=== PATIENT | female | born 1980 | race Asian ===

== ENCOUNTER 2019-02-27 09:27 | Emergency (ER) | payer OTHER ==
[~2019-02-27] VITALS: Ht 157.5 cm; Wt 52.6 kg
[2019-02-27 10:49] VITALS: BP 132/84
== END 2019-02-27 13:08 | disposition home or self-care (01) ==
LOC: ED 09:27
DX: M54.5 Low back pain (principal)
CPT/HCPCS: J1885; J3010; Q0162